=== PATIENT | female | born 2000 | race Hispanic/Latino ===

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

== ENCOUNTER 2019-01-08 14:20 | Emergency (ER) | END 2019-01-08 17:35 | disposition short-term general hospital (02) | LOC: FSED 14:20 | DX: R69 Illness, unspecified (principal) ==

== ENCOUNTER → 2019-02-11 | Emergency (ER) ==
--- NOTE | 2019-02-11 17:40 | NUR ---
PER REGISTRATION PATIENT CAME INTO THE ER STATING A GENTLEMEN CALLED HER TOLD HER TO COME INTO THE ER, REGISTRATION STATED SHE COULD NOT SEE HER APPOINTMENT ON THE TRACKER AND THAT WE WOULD SEE HER HERE. PATIENT STATED SHE WANTED TO BE SEEN AT THE HOSPITAL NOT THE [facility] PATIENT WALKED OUT AND REFUSED TO BE SEEN HERE. REGISTRATION CLERCK ADVISED PATIENT THAT IF SHE WAS COMING IN FOR STROKE SYMPTOMS IT WAS IMPERATIVE TO BE SEEN HERE, AND THAT SHE HAD A 4 HOUR PERIOD TO GET TESTING DONE. PATIENT REFUSED AND STATED SHE WAS GOING TO THE HOSPITAL.
== END | disposition left against medical advice (07) ==
LOC: FSED 17:33
DX: R69 Illness, unspecified (principal)

== ENCOUNTER → 2019-03-27 | Emergency (ER) | END | disposition left against medical advice (07) | LOC: FSED 13:40 | DX: Z53.21 Procedure and treatment not carried out due to patient leaving prior to being seen by health care provider (principal) ==

== ENCOUNTER → 2019-04-02 | Emergency (ER) | END | disposition left against medical advice (07) | LOC: FSED 10:38 | DX: R69 Illness, unspecified (principal) ==

== ENCOUNTER → 2019-08-19 | Emergency (ER) | END | disposition left against medical advice (07) | LOC: FSED 14:48 | DX: Z53.21 Procedure and treatment not carried out due to patient leaving prior to being seen by health care provider (principal) ==

== ENCOUNTER → 2019-09-24 | Emergency (ER) | END | disposition left against medical advice (07) | LOC: FSED 11:36 | DX: R69 Illness, unspecified (principal) ==

== ENCOUNTER → 2019-10-02 | Emergency (ER) ==
[~2019-10-02] MED LIST: EPINEPHRINE HCL 1:1000 1ML 1 MG/ML AMP ONE
== END | disposition home or self-care (01) ==
LOC: FSED 13:34
DX: Z53.21 Procedure and treatment not carried out due to patient leaving prior to being seen by health care provider (principal)

== ENCOUNTER → 2019-10-21 | Emergency (ER) | END | disposition left against medical advice (07) | LOC: FSED 14:06 | DX: R69 Illness, unspecified (principal) ==

== ENCOUNTER → 2019-10-21 | Emergency (ER) | END | disposition left against medical advice (07) | LOC: FSED 12:16 | DX: R69 Illness, unspecified (principal) ==

== ENCOUNTER → 2020-02-04 | Emergency (ER) | END | disposition left against medical advice (07) | LOC: FSED 09:17 | DX: R69 Illness, unspecified (principal) ==